=== PATIENT | female | born 1980 | race African-American/Black ===

== ENCOUNTER 2021-10-17 05:02 | Emergency (ER) | payer OTHER ==
--- OUTSIDE RECORDS SUMMARY | 2021-10-17 05:04 | XMS REPORT | Continuity of Care Document ---
:1980 Author Organization [facility] t Address [facility] [place] [address] Care Team Providers Name Role Phone Unavailable Unavailable Unavailable Problems This patient has no known problems. Allergies, Adverse Reactions, Alerts Allergy Allergy Status Severity Reaction(s) Onset Inactive Treating Comm ents Source Name Type Date Date Clinician NO KNOWN Drug Active [facility] ALLERGIE Class [facility] Medications This patient has no known medications. Procedures This patient has no known procedures. Encounters Start End Encounter Admission Attending Care Care Encounter Source Date/Time Date/Time Type Type Clinicians Facility Department ID 2020-02-29 2020-02-[address] [facility] ERT [id number] [facility] 17:59:00 17:59:00 [facility] Results This patient has no known results.
[2021-10-17] MEDS ORDERED: DIAZEPAM 5 MG TABLET ONE (06:05)
[2021-10-17] MEDS ORDERED: MORPHINE 4 MG/ML SYR ONE (06:06)
[2021-10-17] MEDS ORDERED: NA CHLORIDE 0.9% 1,000 ML ONE (06:06)
[2021-10-17] MEDS ORDERED: dexAMETHasone 10 MG/ML VIAL ONE (06:06)
[2021-10-17] MEDS ORDERED: KETOROLAC 30 MG/ML INJ ONE (06:06)
[2021-10-17] MEDS ORDERED: ONDANSETRON 4 MG/2 ML VIAL ONE (06:07)
[2021-10-17 06:23] LABS: Hematocrit 39.5 % (36.0-45.0); Lymphocytes % 52.9 % (15.3-44.8); MPV 9.4 fL (7.6-11.3); RBC Red Blood Cell Count 4.52 M/uL (3.86-4.86)
[2021-10-17 06:28] LABS: ALT/SGPT 18 U/L (12-78); AST/SGOT 11 U/L (15-37); Albumin 3.9 g/dL (3.4-5.0); Alkaline Phosphatase 47 U/L (45-117); BUN Blood Urea Nitrogen 12 mg/dL (7-18); Bicarbonate 23 mmol/L (21-32); Bilirubin Total 0.3 mg/dL (0.2-1.0); Glucose Level 98 mg/dL (74-106); Potassium 3.9 mmol/L (3.5-5.1); Protein, Total 7.5 g/dL (6.4-8.2); Sodium Level 140 mmol/L (136-145)
--- NOTE | 2021-10-17 06:48 | EDPHYS ---
Physician Documentation [facility] Name: Jeanne Tobar Age: 41 yrs Sex: Female : 1980 Arrival Date: 10/17/2021 Time: 05:08 Bed 20 Private MD: ED Physician Curt Claire HPI: 10/17 05:29 This 41 yrs old Black Female presents to ER via Ambulatory with complaints of Neck floyd Pain, >24Hrs Old, Stiff Neck, Shoulder Pain. 05:29 The patient or guardian complains of an abrasion, a bite, decreased range of motion, floyd pain. The symptoms are located diffusely. Onset: The symptoms/episode began/occurred today. Context: The problem was sustained at an unknown location, The neck injury/problem resulted from from unknown cause. Associated signs and symptoms: The patient has no apparent associated signs or symptoms. The pain does not radiate. Modifying factors: The symptoms are alleviated by remaining still, the symptoms are aggravated by movement. Severity of symptoms: At their worst the symptoms were moderate, in the emergency department the symptoms are unchanged. The patient has not experienced similar symptoms in the past. 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 - Social history:: Smoking status: unknown. - Family history:: not pertinent. ROS: 05:29 Constitutional: Negative for fever, chills, and weight loss, Eyes: Negative for injury, floyd pain, redness, and discharge, ENT: Negative for injury, pain, and discharge, Cardiovascular: Negative for chest pain, palpitations, and edema, Respiratory: Negative for shortness of breath, cough, wheezing, and pleuritic chest pain, Abdomen/GI: Negative for abdominal pain, nausea, vomiting, diarrhea, and constipation, Back: Negative for injury and pain, : Negative for injury, bleeding, discharge, and swelling, MS/Extremity: Negative for injury and deformity, Skin: Negative for injury, rash, and discoloration, Neuro: Negative for headache, weakness, numbness, tingling, and seizure, Psych: Negative for depression, anxiety, suicide ideation, homicidal ideation, and hallucinations, Allergy/Immunology: Negative for hives, rash, and allergies, Endocrine: Negative for neck swelling, polydipsia, polyuria, polyphagia, and marked weight changes, Hematologic/Lymphatic: Negative for swollen nodes, abnormal bleeding, and unusual bruising. 05:29 Neck: Positive for pain with movement, pain at rest. Exam: 05:29 Constitutional: This is a well developed, well nourished patient who is awake, alert, floyd and in no acute distress. Head/Face: Normocephalic, atraumatic. Eyes: Pupils equal round and reactive to light, extra-ocular motions intact. Lids and lashes normal. Conjunctiva and sclera are non-icteric and not injected. Cornea within normal limits. Periorbital areas with no swelling, redness, or edema. ENT: Nares patent. No nasal discharge, no septal abnormalities noted. Tympanic membranes are normal and external auditory canals are clear. Oropharynx with no redness, swelling, or masses, exudates, or evidence of obstruction, uvula midline. Mucous membranes moist. Chest/axilla: Normal chest wall appearance and motion. Nontender with no deformity. No lesions are appreciated. Cardiovascular: Regular rate and rhythm with a normal S1 and S2. No gallops, murmurs, or rubs. Normal PMI, no JVD. No pulse deficits. Respiratory: Lungs have equal breath sounds bilaterally, clear to auscultation and percussion. No rales, rhonchi or wheezes noted. No increased work of breathing, no retractions or nasal flaring. Abdomen/GI: Soft, non-tender, with normal bowel sounds. No distension or tympany. No guarding or rebound. No evidence of tenderness throughout. Back: No spinal tenderness. No costovertebral tenderness. Full range of motion. Skin: Warm, dry with normal turgor. Normal color with no rashes, no lesions, and no evidence of cellulitis. MS/ Extremity: Pulses equal, no cyanosis. Neurovascular intact. Full, normal range of motion. Neuro: Awake and alert, GCS 15, oriented to person, place, time, and situation. Cranial nerves II-XII grossly intact. Motor strength 5/5 in all extremities. Sensory grossly intact. Cerebellar exam normal. Normal gait. Psych: Awake, alert, with orientation to person, place and time. Behavior, mood, and affect are within normal limits. 05:29 Neck: C-spine: Thyroid: appears normal, Trachea: is midline with no obvious abnormalities. Vital Signs: 05:14 BP 156 / 109; Pulse 70; Resp 16; Temp 98.2; Pulse Ox 100% on R/A; Weight 101.15 kg; kj1 Height 5 ft. 6 in. (167.64 cm); Pain 10/10; 06:30 BP 139 / 99; Pulse 63; Resp 16; Pulse Ox 99% on R/A; kd3 07:22 BP 161 / 94; Pulse 62; Resp 15; Pulse Ox 99% ; Pain 0/10; ll1 05:14 Body Mass Index 35.99 (101.15 kg, 167.64 cm) kj1 MDM: 05:13 Patient medically screened. [facility] 05:32 Differential diagnosis: Cervical Disc Herniation Cervical Raiculopathy cervical strain, floyd Osteoarthritis subluxation, torticollis, Whiplash Injury. Data reviewed: vital signs, nurses notes, lab test result(s), radiologic studies, CT scan. Data interpreted: monitoring analyst: not applicable for this patient encounter. rate is 70 beats/min, rhythm is regular, Pulse oximetry: on room air is 100 %. Test interpretation: by ED physician or midlevel provider:. 10/17 05:29 Order name: CBC with Diff; Complete Time: 06:36 [facility] 10/17 05:29 Order name: Comprehensive Metabolic Panel; Complete Time: 06:36 [facility] 10/17 05:29 Order name: CT C Spine floyd Administered Medications: 06:19 Drug: Ketorolac 30 mg Route: IVP; Site: right antecubital; kd3 07:24 Follow up: Response: No adverse reaction ll1 06:21 Drug: Valium (diazepam) 5 mg Route: PO; kd3 07:24 Follow up: Response: No adverse reaction ll1 06:21 Drug: morphine 4 mg Route: IVP; Site: right antecubital; kd3 07:24 Follow up: Response: No adverse reaction ll1 06:21 Drug: Zofran (Ondansetron) 4 mg Route: IVP; Site: right antecubital; kd3 07:24 Follow up: Response: No adverse reaction ll1 06:22 Drug: Decadron - Dexamethasone 10 mg Route: IVP; Site: right antecubital; kd3 07:24 Follow up: Response: No adverse reaction ll1 06:22 Drug: NS 0.9% 1000 ml Route: IV; Rate: 1 bolus; Site: right antecubital; kd3 07:24 Follow up: Response: No adverse reaction; IV Status: Completed infusion; IV Intake: ll1 800ml Disposition Summary: 10/17/21 06:47 Discharge Ordered Location: Home [facility] Problem: new floyd Symptoms: have improved floyd Condition: Stable floyd Diagnosis - Torticollis floyd - Strain of muscle, fascia and tendon at neck level, initial encounter floyd Followup: floyd - With: Private Physician - When: 2 - 3 days - Reason: Recheck today's complaints, Continuance of care, Re-evaluation by your physician Followup: floyd - With: - When: 2 - 3 days - Reason: Recheck today's complaints, Re-evaluation by your physician Discharge Instructions: - Muscle Strain floyd - Acute Torticollis, Adult [facility] - Discharge Summary Sheet la1 - Muscle Strain, Mnwe-co-Afdx [facility] Forms: - Medication Reconciliation Form [facility] - Thank You Letter [facility] - Antibiotic Education [facility] - Prescription Opioid Use [facility] - Work release form [facility] Prescriptions: - Diclofenac Sodium 75 mg Oral tablet,delayed release (DR/EC) - take 1 tablet by ORAL route 2 times per day; 20 tablet; Refills: 0, Product floyd Selection Permitted - Cyclobenzaprine 5 mg Oral Tablet - take 1 tablet by ORAL route 3 times per day As needed; 15 tablet; Refills: 0, [facility] Product Selection Permitted - dexamethasone 2 mg Oral tablet - take 2 tablet by ORAL route 2 times per day; 10 tablet; Refills: 0, Product la1 Selection Permitted - Tylenol-Codeine #3 300 mg-30 mg Oral - take 1 tablet by ORAL route every 6 hours; 20 tablet; Refills: 0, Product floyd Selection Permitted Signatures: Dispatcher [employer] Curt Segovia MD MD cha Doucette, Kyli, RN RN kd3 April Mondragon RN ll1
--- NOTE | 2021-10-17 06:48 | ER ---
Nurse's Notes [facility] Name: Jeanne Tobar Age: 41 yrs Sex: Female : 1980 Arrival Date: 10/17/2021 Time: 05:08 Bed 20 Private MD: Diagnosis: Torticollis;Strain of muscle, fascia and tendon at neck level, initial encounter Presentation: 10/17 05:24 Chief complaint: Patient states: right sided neck pain that started 10 days ago. pt kd3 stated that about last Allan pt had a crook in her neck and it just got worse from there. pt has tried massage and heat and it hasn't gotten better. Coronavirus screen: Vaccine status: Patient reports being unvaccinated. Ebola Screen: No symptoms or risks identified at this time. Initial Sepsis Screen: Does the patient meet any 2 criteria? No. Patient's initial sepsis screen is negative. Does the patient have a suspected source of infection? No. Patient's initial sepsis screen is negative. Risk Assessment: Do you want to hurt yourself or someone else? Patient reports no desire to harm self or others. Onset of symptoms was October 17, 2021. 05:24 Method Of Arrival: Ambulatory kd3 05:24 Acuity: AMRCELO 3 kd3 Triage Assessment: 05:28 General: Appears in no apparent distress. Behavior is calm, cooperative. Pain: kd3 Complains of pain in right side neck pain. Neuro: Level of Consciousness is awake, alert, obeys commands, Oriented to person, place, time, situation. Cardiovascular: Patient's skin is warm and dry. Respiratory: Airway is patent Trachea midline Respiratory effort is even, unlabored, Respiratory pattern is regular, symmetrical. 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 - Social history:: Smoking status: unknown. - Family history:: not pertinent. Screenin:30 Abuse screen: Denies threats or abuse. Denies injuries from another. Nutritional kd3 screening: No deficits noted. Tuberculosis screening: No symptoms or risk factors identified. Fall Risk None identified. Assessment: 05:30 Reassessment: see triage. Pain: Complains of pain in rigth neck. Neuro: Level of kd3 Consciousness is awake, alert, obeys commands, Oriented to person, place, time, situation. Respiratory: Airway is patent Trachea midline Respiratory effort is even, unlabored, Respiratory pattern is regular. 07:10 Reassessment: No changes from previously documented assessment. Patient and/or family ll1 updated on plan of care and expected duration. Pain level reassessed. Patient is alert, oriented x 3, equal unlabored respirations, skin warm/dry/pink. Vital Signs: 05:14 BP 156 / 109; Pulse 70; Resp 16; Temp 98.2; Pulse Ox 100% on R/A; Weight 101.15 kg; kj1 Height 5 ft. 6 in. (167.64 cm); Pain 10/10; 06:30 BP 139 / 99; Pulse 63; Resp 16; Pulse Ox 99% on R/A; kd3 07:22 BP 161 / 94; Pulse 62; Resp 15; Pulse Ox 99% ; Pain 0/10; ll1 05:14 Body Mass Index 35.99 (101.15 kg, 167.64 cm) kj1 ED Course: 05:08 Patient arrived in ED. bp1 05:10 Curt Claire MD is Attending Physician. floyd 05:12 Kimberly Phillips, SAFIA is Primary Nurse. kd3 05:28 Triage completed. kd3 05:30 Patient has correct armband on for positive identification. kd3 05:31 Arm band placed on. kd3 06:06 CT C Spine In Process Unspecified. EDMS 06:47 Hai Roberson MD is Referral Physician. floyd 07:23 No provider procedures requiring assistance completed. IV discontinued, intact, ll1 bleeding controlled, No redness/swelling at site. Pressure dressing applied, L AC. Administered Medications: 06:19 Drug: Ketorolac 30 mg Route: IVP; Site: right antecubital; kd3 07:24 Follow up: Response: No adverse reaction ll1 06:21 Drug: Valium (diazepam) 5 mg Route: PO; kd3 07:24 Follow up: Response: No adverse reaction ll1 06:21 Drug: morphine 4 mg Route: IVP; Site: right antecubital; kd3 07:24 Follow up: Response: No adverse reaction ll1 06:21 Drug: Zofran (Ondansetron) 4 mg Route: IVP; Site: right antecubital; kd3 07:24 Follow up: Response: No adverse reaction ll1 06:22 Drug: Decadron - Dexamethasone 10 mg Route: IVP; Site: right antecubital; kd3 07:24 Follow up: Response: No adverse reaction ll1 06:22 Drug: NS 0.9% 1000 ml Route: IV; Rate: 1 bolus; Site: right antecubital; kd3 07:24 Follow up: Response: No adverse reaction; IV Status: Completed infusion; IV Intake: ll1 800ml Intake: 07:24 IV: 800ml; Total: 800ml. ll1 Outcome: 06:47 Discharge ordered by . floyd 07:18 Patient left the ED. floyd 07:23 Discharged to home ambulatory. ll1 07:23 Condition: stable 07:23 Discharge instructions given to patient, Instructed on discharge instructions, follow up and referral plans. no drinking with medication, no driving heavy equipment, medication usage, Demonstrated understanding of instructions, follow-up care, medications, Prescriptions given X 4. Signatures: Dispatcher [employer] EDCurt Trevizo MD MD cha Jackson, Kandis kj1 April Mondragon RN RN ll1 Shelby Ramos Kyli RN RN kd3
[2021-10-17 07:27] VITALS: TEMP 98.2
[2021-10-17 07:32] VITALS: BP 139/99; O2SAT 99
--- NOTE | 2021-10-17 13:45 | RAD REPORT ---
EXAM DESCRIPTION: CT - C Spine Wo Con - 10/17/2021 6:39 am TECHNIQUE: Computerized tomography of the cervical spine was performed from the skull base to T1 wit hout contrast material. This exam was performed according to our department optimization program whic h includes automated exposure control, adjustment of the mA and/or kV according to patient size, and/ or use of iterative reconstruction technique. CLINICAL HISTORY: Pain COMPARISON: None. FINDINGS: There is straightening of the usual cervical lordosis. Vertebral body heights and alignmen t are maintained. There are mild degenerative disc changes at at C5-6, with small posterior osteophyt es. No acute fracture or subluxation is identified. IMPRESSION: Mild degenerative disc changes at C5-6 . Electronically signed by: Janet Guevara MD 10/17/2021 6:22 AM CDT Due to temporary technical issues with the PACS/Fluency reporting system, reports are being signed by the in house radiologist without review as a courtesy to ensure prompt reporting. The interpreting r adiologist is fully responsible for the content of the report.
== END 2021-10-17 07:18 | disposition home or self-care (01) ==
LOC: ER 05:02
DX: M43.6 Torticollis (principal); S16.1XXA Strain of muscle, fascia and tendon at neck level, initial encounter
CPT/HCPCS: 85025; 36415; 80053; 72125; J1100; J7030; J2405; 96361; 96374; 96375; 99283

== ENCOUNTER 2023-11-14 23:53 | Emergency (ER) | payer SELFPAY ==
--- OUTSIDE RECORDS SUMMARY | 2023-11-14 23:54 | XMS REPORT | Continuity of Care Document ---
Author Name Unknown Address [address] [place] [address] [place] [address] [employer] Address [address] [place] [address] [address] [place] [address] Care Team Providers Care Financial Counselor Name Role Phone Unavailable Unavailable Unavailable Allergies, Adverse Reactions, Alerts Allergy Name Allergy Type Status Severity Reaction(s) Onset Date Inactive Date Treating Clinician Comments Source NO KNOWN ALLERGIE S Drug Class Active [facility] Encounters Start Date/Time End Date/Time Encounter Type Admission Type Attending Clinicians Care Facility Care Department Encounter ID Source 2020-02-29 17:59:00 2020-02-29 17:59:00 [facility] [id number] [facility]
[2023-11-15] MEDS ORDERED: METHYLPREDNISOLONE 125 MG INJ ONE (00:28)
[2023-11-15] MEDS ORDERED: DIPHENHYDRAMINE 50 MG/ML VIAL ONE (00:28)
[2023-11-15] MEDS ORDERED: FAMOTIDINE 20 MG/2 ML VIAL IV ONE (00:29)
[2023-11-15] MEDS ORDERED: NA CHLORIDE 0.9% 1,000 ML ONE (00:29)
[2023-11-15] MEDS ORDERED: FAMOTIDINE 20 MG TAB ONE (00:29)
--- NOTE | 2023-11-15 02:27 | ER ---
Nurse's Notes [facility] Name: Jeanne Tobar Age: 43 yrs Sex: Female : 1980 Arrival Date: 11/14/2023 Time: 23:53 Bed 6 Private MD: Diagnosis: Acute allergic hives Presentation: 11/14 00:03 Chief complaint:. vc1 00:44 Chief complaint: Patient states: HIVES/RASH ON SHOULDERS, ARMS, BACK, CHEST AND LEGS. jj7 THINK IT COULD BE CAUSED BY THE AMOXICILLIN SHE WAS TAKING. Coronavirus screen: At this time, the client does not indicate any symptoms associated with coronavirus-19. Ebola Screen: No symptoms or risks identified at this time. Onset: The symptoms/episode began/occurred gradually. Anaphylaxis evaluation, no signs or symptoms of anaphylaxis were noted. Initial Sepsis Screen: Does the patient meet any 2 criteria? No. Patient's initial sepsis screen is negative. Does the patient have a suspected source of infection? No. Patient's initial sepsis screen is negative. Risk Assessment: Do you want to hurt yourself or someone else? Patient reports no desire to harm self or others. Onset of symptoms was November 14, 2023 at 17:00. 00:44 Method Of Arrival: Ambulatory [facility] 00:44 Acuity: MARCELO 4 jj7 Triage Assessment: 00:47 General: Appears in no apparent distress. comfortable, Behavior is calm, cooperative, jj7 appropriate for age. Pain: Denies pain. Derm: Rash noted that is urticaria, on back, chest, right arm, left arm, right leg and left leg Reports RASH. Historical: - Allergies: 00:47 PENICILLINS; jj7 - PMHx: 00:47 None; jj7 - PSHx: 00:47 None; jj7 - Immunization history:: Adult Immunizations up to date, Client reports receiving the 2nd dose of the Covid vaccine, Flu vaccine is not up to date. - Infectious Disease History:: Denies. - Social history:: Smoking status: Patient reports the use of cigarette tobacco products, 6-7 PER DAY, Patient/guardian denies using alcohol, street drugs, IV drugs. - Family history:: not pertinent. Screenin:50 [facility] ED Fall Risk Assessment (Adult) History of falling in the last 3 months, jj7 including since admission No falls in past 3 months (0 pts) Confusion or Disorientation No (0 pts) Intoxicated or Sedated No (0 pts) Impaired Gait No (0 pts) Mobility Assist Device Used No (0 pt) Altered Elimination No (0 pt) Score/Fall Risk Level 0 - 2 = Low Risk Oriented to surroundings, Maintained a safe environment, Educated pt \T\ family on fall prevention, incl call for assistance when getting out of bed. Abuse screen: Denies threats or abuse. Nutritional screening: No deficits noted. Tuberculosis screening: No symptoms or risk factors identified. Assessment: 00:50 Reassessment: SEE TRIAGE ASSESSMENT. Respiratory: Airway is patent Respiratory effort jj7 is even, unlabored, Breath sounds are clear bilaterally. Vital Signs: 00:44 BP 173 / 105; Pulse 72; Resp 17; Temp 98.1; Pulse Ox 100% ; Weight 97.98 kg; Height 5 jj7 ft. 8 in. ; Pain 0/10; 02:00 BP 143 / 95; Pulse 72; Resp 16; Pulse Ox 98% ; jj7 02:30 BP 140 / 89; Pulse 70; Resp 18; Temp 98.1; Pulse Ox 98% ; Pain 0/10; jj7 00:44 Body Mass Index 32.84 (97.98 kg, 172.72 cm) jj7 00:44 Pain Scale: Adult jj7 02:30 Pain Scale: Adult jj7 Mildred Coma Score: 22:22 Eye Response: spontaneous(4). Motor Response: obeys commands(6). Verbal Response: sp4 oriented(5). Total: 15. ED Course: 11/13 23:57 Patient arrived in ED. im 23:58 Jj Howard MD is Attending Physician. sp4 11/14 00:40 Inserted saline lock: 20 gauge in right antecubital area, using aseptic technique. jj7 00:47 Triage completed. jj7 00:47 Arm band placed on right wrist. jj7 00:50 Patient has correct armband on for positive identification. Bed in low position. Call jj7 light in reach. Adult w/ patient. Provided Education on: USE OF CALL PICKENS. Client placed on continuous cardiac and pulse oximetry monitoring. NIBP monitoring applied. 02:30 No provider procedures requiring assistance completed. IV discontinued, intact, jj7 bleeding controlled, No redness/swelling at site. Pressure dressing applied. Administered Medications: 00:43 Drug: NS 0.9% IV 500 ml IV at bolus once Route: IV; Rate: bolus; Site: right jj7 antecubital; 02:13 Follow up: IV Status: Completed infusion jj7 00:43 Drug: MethylPrednisoLONE IVP 125 mg IVP once Route: IVP; Site: right antecubital; jj7 02:13 Follow up: Response: Marked relief of symptoms jj7 00:43 Drug: Famotidine PO 10 mg PO once Route: PO; jj7 02:13 Follow up: Response: Marked relief of symptoms j7 00:43 Drug: Famotidine IVP 20 mg IVP once; dilute with 10 mL 0.9% NaCl; give over 2 minutes j7 Route: IVP; Site: right antecubital; 02:13 Follow up: Response: Marked relief of symptoms jj7 00:43 Drug: diphenhydrAMINE IVP 25 mg IVP once Route: IVP; Site: right antecubital; jj7 02:13 Follow up: Response: Marked relief of symptoms j7 Medication: 00:50 VIS not applicable for this client. jj7 Outcome: 02:26 Discharge ordered by MD. jeffers 02:30 Discharged to home ambulatory, with significant other, jj7 02:30 Condition: improved 02:30 Discharge instructions given to patient, Instructed on discharge instructions, medication usage, Demonstrated understanding of instructions, medications, Prescriptions given X 2, 02:30 Patient left the ED. jj7 Signatures: Diana Luna RN RN vc1 Estevan Flores RN RN jj7 Jj Howard MD MD sp4 Kelsey Canales Corrections: (The following items were deleted from the chart) 00:48 00:47 Allergies: No Known Allergies; jj7 jj7 02:36 02:35 Patient left the ED. jj7 jj7
--- NOTE | 2023-11-15 02:27 | EDPHYS ---
Physician Documentation [facility] Name: Jeanne Tobar Age: 43 yrs Sex: Female : 1980 Arrival Date: 11/14/2023 Time: 23:53 Bed 6 Private MD: ED Physician Jj Howard HPI: 11/13 23:58 This 43 yrs old Black Female presents to ER via Unassigned with complaints of Hives. sp4 11/14 22:22 43-year-old female presents with acute onset of hives diffusely particular to the back. sp4 Patient reports taking amoxicillin 4 days ago.. Historical: - Allergies: 00:47 PENICILLINS; jj7 - PMHx: 00:47 None; jj7 - PSHx: 00:47 None; jj7 - Immunization history:: Adult Immunizations up to date, Client reports receiving the 2nd dose of the Covid vaccine, Flu vaccine is not up to date. - Infectious Disease History:: Denies. - Social history:: Smoking status: Patient reports the use of cigarette tobacco products, 6-7 PER DAY, Patient/guardian denies using alcohol, street drugs, IV drugs. - Family history:: not pertinent. ROS: 22:22 Constitutional: Negative for fever, chills, and weight loss, positive diffuse sp4 generalized hives. 22:22 All other systems are negative, Exam: 22:22 Constitutional: This is a well developed, well nourished patient who is awake, alert, sp4 and in no acute distress. Head/Face: Normocephalic, atraumatic. Eyes: Pupils equal round and reactive to light, extra-ocular motions intact. Lids and lashes normal. Conjunctiva and sclera are not injected. Cornea within normal limits. Periorbital areas with no swelling, redness, or edema. ENT: Nares patent. No nasal discharge, no septal abnormalities noted. Tympanic membranes are normal and external auditory canals are clear. Oropharynx with no redness, swelling, or masses, exudates, or evidence of obstruction, uvula midline. Mucous membranes moist. Neck: Trachea midline, no thyromegaly or masses palpated, and no cervical lymphadenopathy. Supple, full range of motion without nuchal rigidity, or vertebral point tenderness. Chest/axilla: Normal chest wall appearance and motion. Nontender with no deformity. No lesions are appreciated. Cardiovascular: Regular rate and rhythm with a normal S1 and S2. No gallops, murmurs, or rubs. Normal PMI, no JVD. No pulse deficits. Respiratory: Lungs have equal breath sounds bilaterally, clear to auscultation and percussion. No rales, rhonchi or wheezes noted. No increased work of breathing, no retractions or nasal flaring. Abdomen/GI: Soft, with normal bowel sounds. No distension or tympany. No guarding or rebound. No evidence of tenderness throughout. Back: No spinal tenderness. No costovertebral tenderness. Skin: Warm, dry with normal turgor. Normal color with diffuse generalized hives. MS/ Extremity: Pulses equal, no cyanosis. Neurovascular intact. Full, normal range of motion. Neuro: Awake and alert, GCS 15, oriented to person, place, time, and situation. Cranial nerves II-XII grossly intact. Motor strength 5/5 in all extremities. Sensory grossly intact. Psych: Awake, alert, with orientation to person, place and time. Behavior, mood, and affect are within normal limits Vital Signs: 00:44 BP 173 / 105; Pulse 72; Resp 17; Temp 98.1; Pulse Ox 100% ; Weight 97.98 kg; Height 5 jj7 ft. 8 in. ; Pain 0/10; 02:00 BP 143 / 95; Pulse 72; Resp 16; Pulse Ox 98% ; jj7 02:30 BP 140 / 89; Pulse 70; Resp 18; Temp 98.1; Pulse Ox 98% ; Pain 0/10; jj7 00:44 Body Mass Index 32.84 (97.98 kg, 172.72 cm) j7 00:44 Pain Scale: Adult jj7 02:30 Pain Scale: Adult jj7 Mildred Coma Score: 22:22 Eye Response: spontaneous(4). Motor Response: obeys commands(6). Verbal Response: sp4 oriented(5). Total: 15. MDM: 00:03 Patient medically screened. sp4 22:22 Differential Diagnosis altered mental status, sepsis, flu, Acute allergic reaction. sp4 Data reviewed: vital signs, nurses notes. ED course: There is improvement after medications. Patient will be prescribed prednisone p.o. and Benadryl.. 11/14 00:03 Order name: Saline Lock; Complete Time: 00:43 sp4 Administered Medications: :43 Drug: NS 0.9% IV 500 ml IV at bolus once Route: IV; Rate: bolus; Site: right jj7 antecubital; 02:13 Follow up: IV Status: Completed infusion j7 00:43 Drug: MethylPrednisoLONE IVP 125 mg IVP once Route: IVP; Site: right antecubital; jj7 02:13 Follow up: Response: Marked relief of symptoms j7 00:43 Drug: Famotidine PO 10 mg PO once Route: PO; jj7 02:13 Follow up: Response: Marked relief of symptoms j7 :43 Drug: Famotidine IVP 20 mg IVP once; dilute with 10 mL 0.9% NaCl; give over 2 minutes jj7 Route: IVP; Site: right antecubital; 02:13 Follow up: Response: Marked relief of symptoms :43 Drug: diphenhydrAMINE IVP 25 mg IVP once Route: IVP; Site: right antecubital; jj7 02:13 Follow up: Response: Marked relief of symptoms jj7 Disposition Summary: 11/15/23 02:26 Discharge Ordered Notes: Location: Home sp4 Problem: new sp4 Symptoms: have improved sp4 Condition: Stable sp4 Diagnosis - Acute allergic hives sp4 Followup: sp4 - With: Private Physician - When: As needed - Reason: Recheck today's complaints Discharge Instructions: - Discharge Summary Sheet sp4 - Hives, [id number] sp4 Forms: - Patient Portal Instructions sp4 Prescriptions: - diphenhydramine HCl 25 mg Oral capsule - take 1 capsule ORAL route every 8 hours PRN itching; 30 capsule; Refills: 0, sp4 Product Selection Permitted - Prednisone 20 mg Oral Tablet - take 2 tablets ORAL route once daily for 5 days; 10 tablet; Refills: 0, Product sp4 Selection Permitted Signatures: Estevan Flores RN RN jj7 Jj Howard MD MD sp4 Corrections: (The following items were deleted from the chart) 00:48 00:47 Allergies: No Known Allergies; jj7 jj7
[2023-11-15 02:59] VITALS: BP 143/95; TEMP 98.1; O2SAT 98
== END 2023-11-15 02:35 | disposition home or self-care (01) ==
LOC: ER 23:53
DX: L50.0 Allergic urticaria (principal)
CPT/HCPCS: 96361; 96374; 96375; 99284; J1200; J2919; J7030